=== PATIENT | female | born 1940 | race Caucasian/White ===

== ENCOUNTER 2024-01-06 14:28 | Inpatient (IN) | payer OTHER ==
[~2024-01-06] VITALS: Ht 160 cm; Wt 52.6 kg
[2024-01-06 14:39] VITALS: BP_SYST 120; PULSE 68; RESP 16; TEMP 97.7; O2SAT 97
[2024-01-06 15:17] LABS: BASOPHILS % (AUTO) 0.6 % (0.0-2.0); EOSINOPHILS % (AUTO) 0.2 % (0.0-4.0); HEMATOCRIT 30.9 % (36-48); HEMOGLOBIN 10.7 g/dL (12.0-16.0); LYMPHOCYTES # (AUTO) 0.6 K/uL (1.0-5.5); LYMPHOCYTES % (AUTO) 7.3 % (20.5-51.5); MEAN CORPUSCULAR HEMOGLOBIN 32 pg (27-31); MEAN CORPUSCULAR HGB CONC 35 % (32-36); MEAN CORPUSCULAR VOLUME 92 fL (79.0-98.0); MONOCYTES # (AUTO) 0.4 K/uL (0.0-1.0); MONOCYTES % (AUTO) 5.7 % (1.7-9.3); NEUTROPHILS # (AUTO) 6.8 K/uL (1.8-7.7); NEUTROPHILS % (AUTO) 86.2 % (40.0-70.0); PLATELET COUNT (AUTO) 241 K/uL (130-430); RED BLOOD CELL COUNT(AUTO) 3.35 MIL/uL (4.2-6.2); RED CELL DISTRIBUTION WIDTH 14.5 % (9.0-15.0); WHITE BLOOD COUNT (AUTO) 7.9 K/uL (4.8-10.8)
[2024-01-06] MEDS: HYDROcodone/ACETAMIN 5-325 MG TAB (NORCO/ VICODIN) PO ONE (15:20)
[2024-01-06 15:56] LABS: ALANINE AMINOTRANSFERASE 13 U/L (12-78); ANION GAP 8 (5-15); ASPARTATE AMINOTRANSFERASE 15 U/L (10-37); BILIRUBIN,DIRECT 0.4 mg/dL (0.0-0.3); CALCIUM 9.2 mg/dL (8.4-11.0); CARBON DIOXIDE 27 mmol/L (23-29); CHLORIDE 98 mmol/L (98-107); CREATININE 1.65 mg/dL (0.55-1.30); GLUCOSE 97 mg/dL (74-106); LIPASE 65 U/L (16-77); POTASSIUM 4.3 mmol/L (3.5-5.1); SODIUM SERUM 133 mmol/L (136-145); TOTAL BILIRUBIN 1.3 mg/dL (0.0-1.0); TOTAL PROTEIN, SERUM 6.2 g/dL (6.4-8.3); UREA NITROGEN, BLOOD 45 mg/dL (8-21)
[2024-01-06 16:58] LABS: CLARITY/URINE CLEAR (CLEAR); COLOR,URINE YELLOW (YELLOW); GLUCOSE,URINE NEGATIVE (NEGATIVE); KETONES,URINE 1+ (NEGATIVE); LEUKOCYTE ESTERASE ,URINE TRACE (NEGATIVE); NITRITE, URINE NEGATIVE (NEGATIVE); PROTEIN URINE TRACE (NEGATIVE); UROBILINOGEN,URINE 0.2 (0.2-1.0)
[2024-01-06 17:06] LABS: BLOOD, URINE TRACE (NEGATIVE)
[2024-01-06 17:07] LABS: BILIRUBIN,URINE 1+ (NEGATIVE)
[2024-01-06 17:08] LABS: BACTERIA,URINE FEW /HPF (None Seen); MUCUS,URINE None Seen /LPF (None Seen); RBC,URINE NONE SEEN /HPF (0-3)
[2024-01-06] MEDS: MORPHINE 4 MG INJ. 4 MG/ML VIAL IVP ONE (17:44)
[2024-01-06] MEDS ORDERED: MELATONIN 3 MG TABLET PO PRN (19:45)
[2024-01-06] MEDS ORDERED: hydrALAZINE HCL 20 MG/ML VIAL IVP PRN (19:45)
[2024-01-06] MEDS: LR 1,000 ML IV ONE (20:10)
[2024-01-06] MEDS ORDERED: PIPERACILLIN/TAZOBACTAM 3.375 GM/VIAL (ZOSYN) IV ONE (20:59)
[2024-01-06 21:15] VITALS: BP_SYST 92; PULSE 64; O2SAT 96
[2024-01-06] MEDS: PIPERACILLIN/TAZO 3.375 GM in NS 50 ML IV ONE (21:36)
[2024-01-06] MEDS: NACL 0.9% 1,000 ML IV ONE (23:44)
[2024-01-07] VITALS (16 sets, daily range): BP systolic 73–185; PULSE 109–135; RESP 12–20; TEMP 97.1–98.3; O2SAT 91–97
[2024-01-07] MEDS: HYDROcodone/ACETAMIN 5-325 MG TAB (NORCO/ VICODIN) PO PRN (02:03)
[2024-01-07] MEDS ORDERED: NOREPINEPHRINE BITARTRATE 4 MG in D5W 246 ML IV PRN (06:00)
[2024-01-07] MEDS: NACL 0.9% 1,000 ML IV SCH ×2 (06:18→20:39)
[2024-01-07] MEDS ORDERED: VANCOMYCIN HCL 1000 MG/VIAL IV ONE (06:48)
[2024-01-07] MEDS: VANCOMYCIN HCL 1 GM/NS PREMIX 250 ML IV ONE (06:48)
[2024-01-07 07:08] LABS: ALANINE AMINOTRANSFERASE 10 U/L (12-78); ALBUMIN 2.2 g/dL (3.4-4.8); ANION GAP 8 (5-15); ASPARTATE AMINOTRANSFERASE 12 U/L (10-37); CALCIUM 8.3 mg/dL (8.4-11.0); CARBON DIOXIDE 24 mmol/L (23-29); CHLORIDE 102 mmol/L (98-107); CREATININE 2.15 mg/dL (0.55-1.30); GLUCOSE 92 mg/dL (74-106); POTASSIUM 5.4 mmol/L (3.5-5.1); SODIUM SERUM 134 mmol/L (136-145); TOTAL BILIRUBIN 0.9 mg/dL (0.0-1.0); TOTAL PROTEIN, SERUM 5.4 g/dL (6.4-8.3); UREA NITROGEN, BLOOD 51 mg/dL (8-21)
[2024-01-07] MEDS: MEROPENEM 1 GM in NS 100 ML IV ONE (07:43)
[2024-01-07] MEDS: INSULIN REGULAR, HUMAN 10 UNITS/0.1 ML, 3 ML VIAL IVP ONE (07:52)
[2024-01-07] MEDS: DEXTROSE 50% JECT 50 ML DISP.SYRIN IVP ONE (07:52)
[2024-01-07 08:25] LABS: HEMATOCRIT 28.1 % (36-48); HEMOGLOBIN 9.8 g/dL (12.0-16.0); LYMPHOCYTES # (AUTO) 0.5 K/uL (1.0-5.5); LYMPHOCYTES % (AUTO) 4.3 % (20.5-51.5); MEAN CORPUSCULAR HEMOGLOBIN 32 pg (27-31); MEAN CORPUSCULAR HGB CONC 35 % (32-36); MEAN CORPUSCULAR VOLUME 92 fL (79.0-98.0); MONOCYTES # (AUTO) 0.4 K/uL (0.0-1.0); MONOCYTES % (AUTO) 3.9 % (1.7-9.3); NEUTROPHILS # (AUTO) 10.3 K/uL (1.8-7.7); NEUTROPHILS % (AUTO) 91.8 % (40.0-70.0); PLATELET COUNT (AUTO) 231 K/uL (130-430); RED BLOOD CELL COUNT(AUTO) 3.04 MIL/uL (4.2-6.2); RED CELL DISTRIBUTION WIDTH 14.5 % (9.0-15.0)
[2024-01-07 08:26] LABS: WHITE BLOOD COUNT (AUTO) 11.2 K/uL (4.8-10.8)
[2024-01-07] MEDS ORDERED: BENA-6 PO (08:41)
[2024-01-07] MEDS ORDERED: AMLO2.5T50 PO (08:41)
[2024-01-07] MEDS ORDERED: CARV3.1246 PO (08:41)
[2024-01-07] MEDS ORDERED: FOLI-43 PO (08:41)
[2024-01-07] MEDS ORDERED: ATOR20TA64 PO (08:41)
[2024-01-07] MEDS: PIPERACILLIN/TAZOBACTAM 2.25 GM/ D5W 50 ML IV ONE (11:44)
[2024-01-07] MEDS ORDERED: PIPERACILLIN/TAZO 3.375 GM in NS 50 ML IV SCH (14:00)
[2024-01-07] MEDS ORDERED: LIDOCAINE 1% 10 MG/ML, 20 ML MDV ONE (14:00)
[2024-01-07] MEDS: ONDANSETRON HCL 4 MG/2 ML VIAL IVP PRN (15:46)
[2024-01-07] MEDS: HYDROcodone/ACETAMIN 10-325 MG TAB PO PRN (15:47)
[2024-01-07] MEDS: MORPHINE 2 MG/ML INJ. SYRINGE IVP PRN (17:56)
[2024-01-07] MEDS: SODIUM ZIRCONIUM CYCLOSILICATE 10 GM POWD.PACK PO ONE (18:00)
[2024-01-07 18:34] LABS: EOSINOPHILS % (AUTO) 0.1 % (0.0-4.0); HEMATOCRIT 29.3 % (36-48); HEMOGLOBIN 9.7 g/dL (12.0-16.0); LYMPHOCYTES # (AUTO) 0.5 K/uL (1.0-5.5); LYMPHOCYTES % (AUTO) 2.7 % (20.5-51.5); MEAN CORPUSCULAR HEMOGLOBIN 31 pg (27-31); MEAN CORPUSCULAR HGB CONC 33 % (32-36); MONOCYTES # (AUTO) 0.7 K/uL (0.0-1.0); MONOCYTES % (AUTO) 3.8 % (1.7-9.3); NEUTROPHILS % (AUTO) 93.4 % (40.0-70.0); PLATELET COUNT (AUTO) 239 K/uL (130-430); RED CELL DISTRIBUTION WIDTH 14.5 % (9.0-15.0)
[2024-01-07 18:36] LABS: WHITE BLOOD COUNT (AUTO) 18.2 K/uL (4.8-10.8)
[2024-01-07 18:37] LABS: MEAN CORPUSCULAR VOLUME 94 fL (79.0-98.0)
[2024-01-07 18:49] LABS: ALANINE AMINOTRANSFERASE 10 U/L (12-78); ANION GAP 10 (5-15); ASPARTATE AMINOTRANSFERASE 13 U/L (10-37); CALCIUM 7.9 mg/dL (8.4-11.0); CARBON DIOXIDE 21 mmol/L (23-29); CHLORIDE 104 mmol/L (98-107); CREATININE 2.09 mg/dL (0.55-1.30); GLUCOSE 125 mg/dL (74-106); POTASSIUM 5.2 mmol/L (3.5-5.1); SODIUM SERUM 135 mmol/L (136-145); TOTAL BILIRUBIN 0.7 mg/dL (0.0-1.0); TOTAL PROTEIN, SERUM 5.3 g/dL (6.4-8.3); UREA NITROGEN, BLOOD 57 mg/dL (8-21)
[2024-01-07 19:41] LABS: INR 1.2 (0.8-1.2); PROTHROMBIN TIME 12.5 SECS (9.5-12.5)
[2024-01-07] MEDS ORDERED: NACL 0.9% 1,000 ML IV SCH (20:15)
[2024-01-07] MEDS: ACETAMINOPHEN 325 MG TABLET PO PRN (20:29)
[2024-01-07] MEDS: PIPERACILLIN/TAZOBACTAM 2.25 GM/ D5W 50 ML IV SCH (20:30)
[2024-01-07] MEDS: NOREPINEPHRINE 4 MG/4 ML VIAL IV ONE (20:33)
[2024-01-07] MEDS: NOREPINEPHRINE BITARTRATE 4 MG in D5W 246 ML IV PRN (20:37)
[2024-01-08] VITALS (30 sets, daily range): BP systolic 88–142; PULSE 80–150; RESP 9–36; TEMP 97–98.6; O2SAT 73–100
[2024-01-08] MEDS ORDERED: NACL 0.9% 1,000 ML IV SCH ×2 (00:30→03:15)
[2024-01-08] MEDS: NOREPINEPHRINE 4 MG/4 ML VIAL IV ONE ×6 (00:31→09:09)
[2024-01-08] MEDS: metroNIDAZOLE 500 mg/NS 100 ML IV SCH (02:39)
[2024-01-08] MEDS: metroNIDAZOLE 500 mg/NS 100 ML IV ONE (03:50)
[2024-01-08 04:33] LABS: BASOPHILS % (AUTO) 0.1 % (0.0-2.0); HEMATOCRIT 27.9 % (36-48); HEMOGLOBIN 9.2 g/dL (12.0-16.0); LYMPHOCYTES # (AUTO) 0.3 K/uL (1.0-5.5); LYMPHOCYTES % (AUTO) 2.1 % (20.5-51.5); MEAN CORPUSCULAR HEMOGLOBIN 31 pg (27-31); MEAN CORPUSCULAR HGB CONC 33 % (32-36); MEAN CORPUSCULAR VOLUME 94 fL (79.0-98.0); MONOCYTES # (AUTO) 0.4 K/uL (0.0-1.0); MONOCYTES % (AUTO) 2.6 % (1.7-9.3); NEUTROPHILS # (AUTO) 14.7 K/uL (1.8-7.7); NEUTROPHILS % (AUTO) 95.2 % (40.0-70.0); PLATELET COUNT (AUTO) 348 K/uL (130-430); RED BLOOD CELL COUNT(AUTO) 2.95 MIL/uL (4.2-6.2); RED CELL DISTRIBUTION WIDTH 14.8 % (9.0-15.0); WHITE BLOOD COUNT (AUTO) 15.4 K/uL (4.8-10.8)
[2024-01-08 04:40] LABS: ALANINE AMINOTRANSFERASE 10 U/L (12-78); ALBUMIN 1.8 g/dL (3.4-4.8); ANION GAP 10 (5-15); ASPARTATE AMINOTRANSFERASE 17 U/L (10-37); CALCIUM 7.2 mg/dL (8.4-11.0); CARBON DIOXIDE 21 mmol/L (23-29); CHLORIDE 102 mmol/L (98-107); CREATININE 2.44 mg/dL (0.55-1.30); GLUCOSE 153 mg/dL (74-106); POTASSIUM 4.8 mmol/L (3.5-5.1); SODIUM SERUM 133 mmol/L (136-145); TOTAL BILIRUBIN 0.7 mg/dL (0.0-1.0); TOTAL PROTEIN, SERUM 5.3 g/dL (6.4-8.3); UREA NITROGEN, BLOOD 59 mg/dL (8-21)
[2024-01-08] MEDS: ADENOSINE 6MG/2ML VIAL IVP ONE (04:47)
[2024-01-08] MEDS: ALBUTEROL SULFATE 0.083% 2.5 MG/3 ML VIAL.NEB INH PRN (06:07)
[2024-01-08 07:08] LABS: BLOOD GAS PCO2 44.7 mmHg (35.0-45.0); BLOOD GAS PH 7.164 (7.350-7.450)
[2024-01-08 07:09] LABS: ABG O2 SAT% ESTIMATE 97.1 % (94.0-100.0); ALLEN'S TEST POSITIVE (P); BLOOD GAS BASE EXCESS -12.2 mmol/L (-3.0-3.0); BLOOD GAS HCO3 15.7 mmol/L (21.0-27.0)
[2024-01-08] MEDS: ETOMIDATE 20 MG/ 10 ML VIAL (AMIDATE) ONE (09:04)
[2024-01-08] MEDS: NACL 0.9% 1,000 ML IV SCH (09:08)
[2024-01-08 09:42] LABS: INR 1.1 (0.8-1.2); PROTHROMBIN TIME 11.2 SECS (9.5-12.5)
[2024-01-08] MEDS: SODIUM BICARBONATE 8.4% JECT 50 MEQ/50 ML SYRINGE IVP ONE (09:45)
[2024-01-08] MEDS: IPRATROPIUM BROM 0.5 MG/2.5 ML VIAL.NEB (ATROVENT) INH SCH (11:21)
[2024-01-08] MEDS: levalbuterol HCL 0.63 MG/3 ML VIAL.NEB INH SCH (11:21)
[2024-01-08 12:14] LABS: ABG O2 SAT% ESTIMATE 96.8 % (94.0-100.0); BLOOD GAS PCO2 39.8 mmHg (35.0-45.0); BLOOD GAS PO2 98.6 mmHg (75.0-100.0)
[2024-01-08 12:20] LABS: BLOOD GAS BASE EXCESS -7.3 mmol/L (-3.0-3.0); BLOOD GAS PH 7.291 (7.350-7.450)
[2024-01-08 12:21] LABS: ALLEN'S TEST POSITIVE (P); BLOOD GAS HCO3 18.8 mmol/L (21.0-27.0)
[2024-01-09] VITALS (58 sets, daily range): BP systolic 94–153; PULSE 83–136; RESP 9–35; TEMP 97.4–98.7; O2SAT 86–98
[2024-01-09 05:05] LABS: EOSINOPHILS % (AUTO) 0.3 % (0.0-4.0); HEMATOCRIT 23.1 % (36-48); HEMOGLOBIN 7.8 g/dL (12.0-16.0); LYMPHOCYTES # (AUTO) 0.3 K/uL (1.0-5.5); LYMPHOCYTES % (AUTO) 2.4 % (20.5-51.5); MEAN CORPUSCULAR HEMOGLOBIN 31 pg (27-31); MEAN CORPUSCULAR HGB CONC 34 % (32-36); MEAN CORPUSCULAR VOLUME 91 fL (79.0-98.0); MONOCYTES # (AUTO) 0.2 K/uL (0.0-1.0); MONOCYTES % (AUTO) 1.3 % (1.7-9.3); NEUTROPHILS # (AUTO) 13.4 K/uL (1.8-7.7); PLATELET COUNT (AUTO) 279 K/uL (130-430); RED BLOOD CELL COUNT(AUTO) 2.55 MIL/uL (4.2-6.2); RED CELL DISTRIBUTION WIDTH 14.7 % (9.0-15.0); WHITE BLOOD COUNT (AUTO) 13.9 K/uL (4.8-10.8)
[2024-01-09 05:19] LABS: ALANINE AMINOTRANSFERASE 11 U/L (12-78); ALBUMIN 1.5 g/dL (3.4-4.8); ANION GAP 9 (5-15); ASPARTATE AMINOTRANSFERASE 18 U/L (10-37); CARBON DIOXIDE 22 mmol/L (23-29); CHLORIDE 102 mmol/L (98-107); CREATININE 1.93 mg/dL (0.55-1.30); GLUCOSE 110 mg/dL (74-106); POTASSIUM 3.9 mmol/L (3.5-5.1); SODIUM SERUM 133 mmol/L (136-145); TOTAL BILIRUBIN 0.6 mg/dL (0.0-1.0); TOTAL PROTEIN, SERUM 4.7 g/dL (6.4-8.3); UREA NITROGEN, BLOOD 50 mg/dL (8-21)
[2024-01-09] MEDS: AMIODARONE HCL 150 MG in D5W 100 ML IV ONE (11:04)
[2024-01-09] MEDS: AMIODARONE HCL 450 MG in D5W 241 ML IV SCH (11:06)
[2024-01-09] MEDS ORDERED: GASTROGRAFIN 120 ML ONE (11:14)
[2024-01-09] MEDS ORDERED: DIATR MEGLU/DIATRIZ SOD 30 ML SOLUTION PO ONE (11:15)
[2024-01-09] MEDS: ACETYLCYSTEINE 20% 4 ML VIAL (RT) INH ONE (11:51)
[2024-01-09] MEDS ORDERED: FLUCONAZOLE 200 mg/ NS 100 ML IV SCH (13:00)
[2024-01-09] MEDS: FLUCONAZOLE 200 mg/ NS 100 ML IV SCH (13:59)
[2024-01-09] MEDS: NOREPINEPHRINE BITARTRATE 16 MG in D5W 234 ML IV PRN (14:01)
[2024-01-09] MEDS ORDERED: *TPN PER PHARMACY XX PRN (15:00)
[2024-01-09] MEDS: ACETYLCYSTEINE 20% 4 ML VIAL (RT) INH SCH (15:24)
[2024-01-09] MEDS: PANTOPRAZOLE SODIUM 40 MG in NS 50 ML IV SCH (15:29)
[2024-01-10] VITALS (31 sets, daily range): BP systolic 102–150; PULSE 83–120; RESP 14–26; TEMP 97.3–98.6; O2SAT 92–99
[2024-01-10 06:13] LABS: ALANINE AMINOTRANSFERASE 12 U/L (12-78); ALBUMIN 1.4 g/dL (3.4-4.8); ANION GAP 10 (5-15); ASPARTATE AMINOTRANSFERASE 13 U/L (10-37); CALCIUM 7.1 mg/dL (8.4-11.0); CARBON DIOXIDE 20 mmol/L (23-29); CHLORIDE 106 mmol/L (98-107); CREATININE 1.19 mg/dL (0.55-1.30); GLUCOSE 101 mg/dL (74-106); POTASSIUM 3.3 mmol/L (3.5-5.1); SODIUM SERUM 136 mmol/L (136-145); TOTAL BILIRUBIN 0.6 mg/dL (0.0-1.0); TOTAL PROTEIN, SERUM 4.6 g/dL (6.4-8.3); UREA NITROGEN, BLOOD 32 mg/dL (8-21)
[2024-01-10 07:53] LABS: BASOPHILS % (AUTO) 0.2 % (0.0-2.0); EOSINOPHILS # (AUTO) 0.1 K/uL (0.0-0.4); EOSINOPHILS % (AUTO) 1.1 % (0.0-4.0); LYMPHOCYTES # (AUTO) 0.4 K/uL (1.0-5.5); LYMPHOCYTES % (AUTO) 3.3 % (20.5-51.5); MEAN CORPUSCULAR HEMOGLOBIN 30 pg (27-31); MEAN CORPUSCULAR HGB CONC 34 % (32-36); MEAN CORPUSCULAR VOLUME 91 fL (79.0-98.0); MONOCYTES # (AUTO) 0.3 K/uL (0.0-1.0); MONOCYTES % (AUTO) 2.6 % (1.7-9.3); NEUTROPHILS # (AUTO) 11.3 K/uL (1.8-7.7); NEUTROPHILS % (AUTO) 92.8 % (40.0-70.0); PLATELET COUNT (AUTO) 239 K/uL (130-430); WHITE BLOOD COUNT (AUTO) 12.1 K/uL (4.8-10.8)
[2024-01-10 08:00] LABS: HEMATOCRIT 20.9 % (36-48)
[2024-01-10] MEDS: KCL 40 mEq in 100 mL (PREMIX) 100 ML IV ONE (10:28)
[2024-01-10] MEDS: MAGNESIUM SULFATE 50 ML IV ONE (10:43)
[2024-01-10 16:30] LABS: TRIGLYCERIDES 39 mg/dL (30-150)
[2024-01-10 18:55] LABS: HEMATOCRIT 27.9 % (36-48); HEMOGLOBIN 9.5 g/dL (12.0-16.0); MEAN CORPUSCULAR HEMOGLOBIN 31 pg (27-31); MEAN CORPUSCULAR HGB CONC 34 % (32-36); MEAN CORPUSCULAR VOLUME 91 fL (79.0-98.0); PLATELET COUNT (AUTO) 219 K/uL (130-430); RED BLOOD CELL COUNT(AUTO) 3.08 MIL/uL (4.2-6.2); WHITE BLOOD COUNT (AUTO) 14.6 K/uL (4.8-10.8)
[2024-01-10 20:15] LABS: BAND % (MANUAL) 10 % (0-6); BASOPHILS % (MANUAL) 0 % (0-2); EOSINOPHILS % (MANUAL) 0 % (0-7); LYMPHOCYTES % (MANUAL) 3 % (20-46); MONOCYTES % (MANUAL) 2 % (0-11); PLATELET ESTIMATE ADEQUATE (ADEQUATE)
[2024-01-10 20:16] LABS: OVALOCYTES MODERATE
[2024-01-10] MEDS: TPN CENTRAL 0.0001 ML, SODIUM ACETATE 40 MEQ, POTASSIUM ACETATE 20 MEQ, K PHOS 9 MM, CA... IV SCH (21:34)
[2024-01-11] VITALS (21 sets, daily range): BP systolic 124–174; PULSE 78–165; RESP 17–40; TEMP 98.2–98.6; O2SAT 89–99
[2024-01-11 05:17] LABS: ALANINE AMINOTRANSFERASE 8 U/L (12-78); ALBUMIN 1.5 g/dL (3.4-4.8); ANION GAP 8 (5-15); ASPARTATE AMINOTRANSFERASE 8 U/L (10-37); CALCIUM 8.2 mg/dL (8.4-11.0); CARBON DIOXIDE 21 mmol/L (23-29); CHLORIDE 108 mmol/L (98-107); CREATININE 1.19 mg/dL (0.55-1.30); GLUCOSE 209 mg/dL (74-106); PHOSPHORUS 1.8 mg/dL (2.7-4.5); POTASSIUM 3.7 mmol/L (3.5-5.1); SODIUM SERUM 137 mmol/L (136-145); TOTAL BILIRUBIN 0.6 mg/dL (0.0-1.0); UREA NITROGEN, BLOOD 31 mg/dL (8-21)
[2024-01-11] MEDS: LABETALOL HCL 20 MG/4 ML CARTRIDGE IVP PRN (08:36)
[2024-01-11] MEDS ORDERED: ONDANSETRON HCL 4 MG/2 ML VIAL IVP PRN (09:30)
[2024-01-11] MEDS: K PHOS 30 MM in NS 250 ML IV ONE (10:00)
[2024-01-11] MEDS ORDERED: POTASSIUM ACETATE IV SCH (21:00)
[2024-01-11] MEDS ORDERED: SODIUM ACETATE IV SCH (21:00)
[2024-01-11] MEDS ORDERED: [UNRECOGNIZED DRUG - OTHER] IV SCH (21:00)
[2024-01-11] MEDS ORDERED: K PHOS IV SCH (21:00)
[2024-01-11] MEDS ORDERED: TPN CENTRAL IV SCH (21:00)
== END 2024-01-11 13:30 | disposition short-term general hospital (02) | DRG 871 ==
LOC: SED 14:28 → SMU 19:31 → SIC 01-07 07:10
PROVIDERS: ADMIT Family Medicine; ATTEND Family Medicine
PROC: 0F9430Z Drainage of Gallbladder with Drainage Device, Percutaneous Approach (ICD-10-PCS; 2024-01-07)
PROC: 02HV33Z Insertion of Infusion Device into Superior Vena Cava, Percutaneous Approach (ICD-10-PCS; 2024-01-07)
PROC: 5A09357 Assistance with Respiratory Ventilation, Less than 24 Consecutive Hours, Continuous Positive Airway Pressure (ICD-10-PCS; 2024-01-08)
PROC: 5A0945A Assistance with Respiratory Ventilation, 24-96 Consecutive Hours, High Flow/Velocity Cannula (ICD-10-PCS; 2024-01-08)
PROC: 30233N1 Transfusion of Nonautologous Red Blood Cells into Peripheral Vein, Percutaneous Approach (ICD-10-PCS; principal; 2024-01-10)
DX: A41.9 Sepsis, unspecified organism (principal); J96.01 Acute respiratory failure with hypoxia; R65.21 Severe sepsis with septic shock; K26.5 Chronic or unspecified duodenal ulcer with perforation; E87.1 Hypo-osmolality and hyponatremia; N17.9 Acute kidney failure, unspecified; T85.628A Displacement of other specified internal prosthetic devices, implants and grafts, initial encounter; K80.00 Calculus of gallbladder with acute cholecystitis without obstruction; E87.5 Hyperkalemia; E80.6 Other disorders of bilirubin metabolism; D64.9 Anemia, unspecified; E78.5 Hyperlipidemia, unspecified; Y83.8 Other surgical procedures as the cause of abnormal reaction of the patient, or of later complication, without mention of misadventure at the time of the procedure; J44.9 Chronic obstructive pulmonary disease, unspecified; I12.9 Hypertensive chronic kidney disease with stage 1 through stage 4 chronic kidney disease, or unspecified chronic kidney disease; N18.31 Chronic kidney disease, stage 3a; Z85.819 Personal history of malignant neoplasm of unspecified site of lip, oral cavity, and pharynx; Z79.899 Other long term (current) drug therapy
CPT/HCPCS: 36415; 36600; 71045; 73030; 74018; 74250; 76000; 76700; 76705; 78579; 78580; 80048; 80053; 80076; 81000; 81001; 81015; 82803; 83605; 83690; 83735; 84100; 84478; 84484; 85007; 85025; 85027; 85379; 85610; 85730; 86886; 86900; 86901; 86920; 87040; 87070; 87075; 87081; 93005; 93970; 94070; 94640; 94660; 94760; 96365; 96375; 99285; A9539; A9540; J0153; J0282; J0610; J1450; J1815; J2001; J2185; J2270; J2405; J2470; J2543; J2765; J3370; J3465; J3475; J3480; J3490; J7050; J7060; J7120; J7608; J7614; P9021; Q9963; Q9964